=== PATIENT | male | born 1965 | race Hispanic/Latino ===

== ENCOUNTER 2018-10-01 18:06 | Emergency (ER) | payer SELFPAY ==
[2018-10-01 20:45] LABS: Absolute Lymphocytes (CBC) 3.5 K/uL (0.7-4.9); Absolute Monocytes 0.9 K/uL (0.1-1.3); Absolute Neutrophil 7.4 K/uL (1.8-8.0); Basophils % 0.9 % (0-1.3); Eosinophils % 1.3 % (0-4.4); Lymphocytes % 29.3 % (15.3-44.8); MPV 8.2 fL (7.6-11.3); Monocytes % 7.1 % (3.3-12.3); RBC Red Blood Cell Count 4.74 M/uL (4.33-5.43)
[2018-10-01 20:53] LABS: Urine Blood 1+ (NEG); Urine Glucose NEGATIVE (NEG); Urine Protein NEGATIVE (NEG); Urine Specific Gravity >1.030 (1.005-1.030)
[2018-10-01 21:05] LABS: ALT/SGPT 31 U/L (12-78); AST/SGOT 20 U/L (15-37); Albumin 4.3 g/dL (3.4-5.0); Alkaline Phosphatase 84 U/L (45-117); BUN Blood Urea Nitrogen 20 mg/dL (7-18); Bicarbonate 26 mmol/L (21-32); Bilirubin Direct < 0.1 mg/dL (0-0.2); Bilirubin Total 0.3 mg/dL (0.2-1.0); Glucose Level 123 mg/dL (74-106); Lipase 166 U/L (73-393); Potassium 3.4 mmol/L (3.5-5.1); Protein, Total 8.3 g/dL (6.4-8.2); Sodium Level 142 mmol/L (136-145)
--- NOTE | 2018-10-01 22:40 | EDPHYS ---
Physician Documentation [facility] Name: Edmar Menezes Age: 53 yrs Sex: Male : 1965 Arrival Date: 10/01/2018 Time: 18:07 Bed 20 Private MD: None, None ED Physician Mikie Mcfarland HPI: 10/01 20:29 This 53 yrs old Male presents to ER via Ambulatory with complaints of Urinary jmm Problem. 20:29 The patient presents with abdominal pain in the lower abdomen. Onset: The jmm symptoms/episode began/occurred gradually, 2 week(s) ago. The symptoms radiate to left leg. Associated signs and symptoms: Pertinent positives: dysuria. This is a 53 year old male with a history of hlp that presents to the ED with complaints of suprapubic abdominal pain, dysuria, and scrotal pain for the past 2 weeks. Patient denies fever, vomiting, diarrhea. . Historical: - Allergies: 18:36 Ceftriaxone Sodium; hb - PMHx: 18:36 Hyperlipidemia; hb - Immunization history:: Adult Immunizations up to date. - Social history:: Smoking status: Patient/guardian denies using tobacco. - Ebola Screening: : No symptoms or risks identified at this time. ROS: 20:29 Constitutional: Negative for fever, chills, and weight loss, Cardiovascular: Negative jmm for chest pain, palpitations, and edema, Respiratory: Negative for shortness of breath, cough, wheezing, and pleuritic chest pain. 20:29 Abdomen/GI: Positive for abdominal pain. 20:29 : Positive for urinary symptoms. 20:29 All other systems are negative. Exam: 20:29 Constitutional: This is a well developed, well nourished patient who is awake, alert, jmm and in no acute distress. Head/Face: atraumatic. Eyes: EOMI, no conjunctival erythema appreciated ENT: Moist Mucus Membranes Neck: Trachea midline, Supple Chest/axilla: Normal chest wall appearance and motion. Cardiovascular: Regular rate and rhythm. No edema appreciated Respiratory: Normal respirations, no respiratory distress appreciated 20:29 Back: Normal ROM Skin: General appearance color normal MS/ Extremity: Moves all extremities, no obvious deformities appreciated, no edema noted to the lower extremities Neuro: Awake and alert, normal gait Psych: Behavior is normal, Mood is normal, Patient is cooperative and pleasant 20:29 Abdomen/GI: Inspection: obese Bowel sounds: normal, Palpation: nontender, mild abdominal tenderness, in the suprapubic area. 20:29 Back: ROM is normal. Vital Signs: 18:37 BP 147 / 80; Pulse 68; Resp 16; Temp 98.9(TE); Pulse Ox 98% on R/A; Pain 4/10; hb 20:32 BP 139 / 80; Pulse 90; Resp 16; Pulse Ox 97% on R/A; jb4 21:54 BP 141 / 71; Pulse 89; Resp 16; Pulse Ox 99% on R/A; jb4 MDM: 20:29 Patient medically screened. [facility] 22:28 Data reviewed: vital signs, nurses notes. Counseling: I had a detailed discussion with [facility] the patient and/or guardian regarding: the historical points, exam findings, and any diagnostic results supporting the discharge/admit diagnosis, lab results, radiology results, the need for outpatient follow up, to return to the emergency department if symptoms worsen or persist or if there are any questions or concerns that arise at home. ED course: Patient is alert and non toxic in appearance. I do not currently suspect an acute intrabdominal process. Patient is advised to follow up with urology for further evaluation. . 10/01 20:15 Order name: Basic Metabolic Panel; Complete Time: 21:08 [facility] 10/01 20:15 Order name: CBC with Diff; Complete Time: 20:47 [facility] 10/01 20:15 Order name: Creatinine for Radiology; Complete Time: 21:08 [facility] 10/01 20:15 Order name: Hepatic Function; Complete Time: 21:08 [facility] 10/01 20:15 Order name: Lipase; Complete Time: 21:08 [facility] 10/01 20:21 Order name: Urine Dipstick--Ancillary (enter results); Complete Time: 21:08 ar5 10/01 20:15 Order name: IV Saline Lock; Complete Time: 20:37 [facility] 10/01 20:15 Order name: Labs collected and sent; Complete Time: 20:37 [facility] 10/01 20:15 Order name: Urine Dipstick-Ancillary (obtain specimen); Complete Time: 20:37 [facility] 10/01 20:29 Order name: CT Abd/Pelvis - W/Contrast [facility] 10/01 20:29 Order name: US Scrotum Testicles joanne Administered Medications: No medications were administered Disposition: 10/02 07:48 Co-signature as Attending Physician, Mikie Mcfarland MD I agree with the assessment and [facility] plan of care. Disposition: 10/01/18 22:39 Discharged to Home. Impression: Dysuria, Enlarged prostate. - Condition is Stable. - Discharge Instructions: Dysuria. - Prescriptions for Cipro 500 mg Oral Tablet - take 1 tablet by ORAL route every 12 hours for 7 days; 14 tablet. - Medication Reconciliation Form, Thank You Letter, Antibiotic Education, Prescription Opioid Use form. - Follow up: Neo Slade MD; When: 1 - 2 days; Reason: Recheck today's complaints, Continuance of care, Re-evaluation by your physician. Signatures: Dispatcher [employer] EDMS Mikie Mcfarland MD MD cha Mickail, Joel, PA PA jmm Baxter, Heather, [place] RN Gavin Coates RN RN jb4 Corrections: (The following items were deleted from the chart) 10/01 23:01 22:39 10/01/2018 22:39 Discharged to Home. Impression: Dysuria; Enlarged prostate. jb4 Condition is Stable. Forms are Medication Reconciliation Form, Thank You Letter, Antibiotic Education, Prescription Opioid Use. Follow up: Neo Slade; When: 1 - 2 days; Reason: Recheck today's complaints, Continuance of care, Re-evaluation by your physician. joanne
--- NOTE | 2018-10-01 22:40 | ER ---
Nurse's Notes [facility] Name: Edmar Menezes Age: 53 yrs Sex: Male : 1965 Arrival Date: 10/01/2018 Time: 18:07 Bed 20 Private MD: None, None Diagnosis: Dysuria;Enlarged prostate Presentation: 10/01 18:36 Presenting complaint: Lower abdominal pain and difficulty urinating x 2 weeks. hb Transition of care: patient was not received from another setting of care. Onset of symptoms was October 01, 2018. Risk Assessment: Do you want to hurt yourself or someone else? Patient reports no desire to harm self or others. Care prior to arrival: None. 18:36 Acuity: CHANDA 3 hb 18:36 Method Of Arrival: Ambulatory hb Historical: - Allergies: 18:36 Ceftriaxone Sodium; hb - PMHx: 18:36 Hyperlipidemia; hb - Immunization history:: Adult Immunizations up to date. - Social history:: Smoking status: Patient/guardian denies using tobacco. - Ebola Screening: : No symptoms or risks identified at this time. Screenin:00 Abuse screen: Denies threats or abuse. Nutritional screening: No deficits noted. jb4 Tuberculosis screening: No symptoms or risk factors identified. Fall Risk None identified. Assessment: 20:00 General: Appears in no apparent distress. comfortable, Behavior is calm, cooperative, jb4 appropriate for age. Pain: Complains of pain in suprapubic area Pain radiates to groin Pain currently is 4 out of 10 on a pain scale. Neuro: Level of Consciousness is awake, alert, obeys commands, Oriented to person, place, time, situation. Cardiovascular: Patient's skin is warm and dry. Respiratory: Airway is patent Respiratory effort is even, unlabored, Respiratory pattern is regular, symmetrical. GI: Reports lower abdominal pain. : Reports pain in suprapubic area. EENT: No signs and/or symptoms were reported regarding the EENT system. Derm: Skin is intact, Skin is pink, warm \T\ dry. Musculoskeletal: Circulation, motion, and sensation intact. 21:00 Reassessment: Patient appears in no apparent distress at this time. Patient and/or jb4 family updated on plan of care and expected duration. Pain level reassessed. Patient is alert, oriented x 3, equal unlabored respirations, skin warm/dry/pink. Vital Signs: 18:37 BP 147 / 80; Pulse 68; Resp 16; Temp 98.9(TE); Pulse Ox 98% on R/A; Pain 4/10; hb 20:32 BP 139 / 80; Pulse 90; Resp 16; Pulse Ox 97% on R/A; jb4 21:54 BP 141 / 71; Pulse 89; Resp 16; Pulse Ox 99% on R/A; jb4 ED Course: 18:07 Patient arrived in ED. sb2 18:07 None, None is Private Physician. sb2 18:35 Arm band placed on. hb 18:37 Triage completed. hb 19:50 Gavin Walker, RN is Primary Nurse. jb4 20:00 Patient has correct armband on for positive identification. Bed in low position. Call jb4 light in reach. Side rails up X 1. Pulse ox on. NIBP on. 20:15 Desean Beaulieu PA is PHCP. [facility] 20:15 Mikie Mcfarland MD is Attending Physician. [facility] 20:30 Initial lab(s) drawn, by mi, sent to lab. Inserted saline lock: 20 gauge in right jb4 antecubital area, using aseptic technique. Blood collected. 20:59 Radiology exam delayed due to lab results not completed at this time. (BUN/Creatinine). nj 21:[address] nj 21:58 CT Abd/Pelvis - W/Contrast In Process Unspecified. EDMS 22:27 US Scrotum Testicles In Process Unspecified. EDMS 22:39 Neo Slade MD is Referral Physician. [facility] 22:59 No provider procedures requiring assistance completed. IV discontinued, intact, cc3 bleeding controlled, No redness/swelling at site. Pressure dressing applied. Administered Medications: No medications were administered Outcome: 22:39 Discharge ordered by . [facility] 22:59 Discharged to home ambulatory, with family. cc3 22:59 Condition: stable 22:59 Discharge instructions given to patient, Instructed on discharge instructions, follow up and referral plans. medication usage, Demonstrated understanding of instructions, follow-up care, medications, Prescriptions given X 1. 23:01 Patient left the ED. [facility] Signatures: Dispatcher [employer] EDMS Desean Beaulieu PA PA Meenu Caballero RN RN Gavin Coates, RN RN jb4 Denny Tracy Sheri sb2 Kasandra Vallejo cc3
[2018-10-02 02:01] VITALS: TEMP 98.9
[2018-10-02 02:04] VITALS: BP 141/71; O2SAT 99
--- NOTE | 2018-10-02 09:49 | RAD REPORT ---
EXAM DESCRIPTION: US - Scrotum Testicles - 10/01/2018 10:27 pm CLINICAL HISTORY: Scrotal pain Preliminary findings provided at the time of the study. COMPARISON: None. FINDINGS: Testicular tissue is homogeneous with no mass or focal intratesticular abnormality. Dopple r evaluation shows normal blood flow within the testicular tissue. No epididymis mass or hyperemia. T race hydrocele seen bilaterally. No varicocele other extratesticular mass. IMPRESSION: Scrotal ultrasound showing no significant or suspicious finding.
--- NOTE | 2018-10-02 11:52 | RAD REPORT ---
EXAM DESCRIPTION: CT - Abdomen Pelvis W Contrast - 10/01/2018 10:25 pm CLINICAL HISTORY: 53 years Male Lower abdominal pain, IV ONLY COMPARISON: None. TECHNIQUE: Images were obtained in axial, sagittal and coronal planes. Intravenous contrast was admi nistered. This exam was performed according to our departmental dose-optimization program, which includes autom ated exposure control, adjustment of the mA and/or kV according to patient size and/or less of iterat mustapha reconstruction technique. FINDINGS: No abnormality involving the liver, is clean, gallbladder, and adrenal glands bilaterally. No obstructing renal calcifications bilaterally. No hydronephrosis bilaterally. Unremarkable bladder. Mildly enlarged prostate gland with associated calcification. Appendix is incompletely visualized however, no secondary signs for appendicitis. No bowel obstructio n, perforation, or inflammation. Calcification abdominal aorta without dilatation seen. Unremarkable portal vein. Dependent atelectatic changes lower lungs bilaterally. No acute osseous abnormality. IMPRESSION: Mildly enlarged prostate gland. No acute intra-abdominal abnormality. Electronically signed by Estephania Pelaez MD 10/01/2018 10:07 PM INSTRUMENTATION AND CONTROLS DESIGNER Due to temporary technical issues with the PACS/Fluency reporting system, reports are being signed by the in house radiologist as a courtesy to ensure prompt reporting. The interpreting radiologist is f ully responsible for the content of the report.
== END 2018-10-01 23:01 | disposition home or self-care (01) ==
LOC: ER 18:06
DX: N40.0 Benign prostatic hyperplasia without lower urinary tract symptoms (principal); E78.5 Hyperlipidemia, unspecified; Z88.8 Allergy status to other drugs, medicaments and biological substances
CPT/HCPCS: 36415; 74177; 76870; 80048; 80076; 81003; 83690; 85025; Q9967

== ENCOUNTER 2019-11-11 09:40 | Emergency (ER) | payer SELFPAY ==
[2019-11-11] MEDS ORDERED: METOCLOPRAMIDE 10 MG/2mL INJ ONE (10:12)
[2019-11-11] MEDS ORDERED: NA CHLORIDE 0.9% 0 ML ONE (10:12)
[2019-11-11] MEDS ORDERED: MEPERIDINE HCL 25 MG/0.5 ML ONE (10:12)
[2019-11-11] MEDS ORDERED: MAGNE/ALUM HYDROXD 30 ML UCUP ONE (10:13)
[2019-11-11] MEDS ORDERED: LIDOCAINE VISCOUS 2% SOLN 15 ML UDC ONE (10:13)
--- NOTE | 2019-11-11 10:57 | EDPHYS ---
Physician Documentation [facility] Name: Edmar Menezes Age: 54 yrs Sex: Male : 1965 Arrival Date: 11/11/2019 Time: 09:42 Bed 14 Private MD: ED Physician Jatinder Menezes HPI: 11/10 10:54 This 54 yrs old Male presents to ER via Ambulatory with complaints of Sore snw Throat. 10:54 The patient presents with sore throat. The patient describes throat pain as scratchy. snw Onset: The symptoms/episode began/occurred gradually. Severity of symptoms: At their worst the symptoms were very mild. Associated signs and symptoms: The patient has no apparent associated signs or symptoms. The patient has not experienced similar symptoms in the past. The patient has been recently seen by a physician: pt had sore throat and was treated with abx for gastritis, recent endoscopy for dx gastritis. Not on PPI. Historical: - Allergies: 09:56 Ceftriaxone Sodium; bp - Home Meds: 09:56 Flomax Oral [Active]; bp - PMHx: 09:56 Hyperlipidemia; BPH; bp - Immunization history:: Adult Immunizations up to date. - Social history:: Smoking status: Patient denies any tobacco usage or history of. ROS: 10:51 Constitutional: Negative for fever, chills, and weight loss, Eyes: Negative for injury, snw pain, redness, and discharge, ENT: Negative for injury and discharge, pain on swallowing Neck: Negative for injury, pain, and swelling, Cardiovascular: Negative for chest pain, palpitations, and edema, Respiratory: Negative for shortness of breath, cough, wheezing, and pleuritic chest pain, Abdomen/GI: Negative for abdominal pain, nausea, vomiting, diarrhea, and constipation, Back: Negative for injury and pain, : Negative for injury, bleeding, discharge, and swelling, MS/Extremity: Negative for injury and deformity, Skin: Negative for injury, rash, and discoloration, Neuro: Negative for headache, weakness, numbness, tingling, and seizure. Exam: 10:50 Constitutional: This is a well developed, well nourished patient who is awake, alert, snw and in no acute distress. Head/Face: Normocephalic, atraumatic. Eyes: Pupils equal round and reactive to light, extra-ocular motions intact. Lids and lashes normal. Conjunctiva and sclera are non-icteric and not injected. Cornea within normal limits. Periorbital areas with no swelling, redness, or edema. ENT: Nares patent. No nasal discharge, no septal abnormalities noted. Tympanic membranes are normal and external auditory canals are clear. Oropharynx with no redness, swelling, or masses, exudates, or evidence of obstruction, uvula midline. Mucous membranes moist. Neck: Trachea midline, no thyromegaly or masses palpated, and no cervical lymphadenopathy. Supple, full range of motion without nuchal rigidity, or vertebral point tenderness. No Meningismus. Chest/axilla: Normal chest wall appearance and motion. Nontender with no deformity. No lesions are appreciated. Cardiovascular: Regular rate and rhythm with a normal S1 and S2. No gallops, murmurs, or rubs. Normal PMI, no JVD. No pulse deficits. Respiratory: Lungs have equal breath sounds bilaterally, clear to auscultation and percussion. No rales, rhonchi or wheezes noted. No increased work of breathing, no retractions or nasal flaring. Abdomen/GI: Soft, non-tender, with normal bowel sounds. No distension or tympany. No guarding or rebound. No evidence of tenderness throughout. Back: No spinal tenderness. No costovertebral tenderness. Full range of motion. Skin: Warm, dry with normal turgor. Normal color with no rashes, no lesions, and no evidence of cellulitis. MS/ Extremity: Pulses equal, no cyanosis. Neurovascular intact. Full, normal range of motion. Neuro: Awake and alert, GCS 15, oriented to person, place, time, and situation. Cranial nerves II-XII grossly intact. Motor strength 5/5 in all extremities. Sensory grossly intact. Cerebellar exam normal. Normal gait. Vital Signs: 09:52 BP 121 / 82; Pulse 62; Resp 16; Temp 97.3; Pulse Ox 100% ; Weight 113.4 kg; bp 11:56 BP 132 / 75; Pulse 75; Resp 17; Temp 97.5; Pulse Ox 100% ; bp MDM: 09:51 Patient medically screened. snw 10:58 Data reviewed: vital signs, nurses notes. Data interpreted: Pulse oximetry: on room air snw is 100 %. Interpretation: normal. Counseling: I had a detailed discussion with the patient and/or guardian regarding: the historical points, exam findings, and any diagnostic results supporting the discharge/admit diagnosis, the need for outpatient follow up, to return to the emergency department if symptoms worsen or persist or if there are any questions or concerns that arise at home. Special discussion: Based on the history and exam findings, there is no indication for further emergent testing or inpatient evaluation. I discussed with the patient/guardian the need to see the apprentice jockey for further evaluation of the symptoms. I discussed with the patient/guardian the need to see the primary care provider for further evaluation of the symptoms. Administered Medications: 10:28 Drug: GI Cocktail without - (Maalox Suspension 30 ml, Lidocaine Liquid 2 % 15 bp ml) Route: PO; 11:57 Follow up: Response: Pain is decreased bp Disposition: 12:14 Co-signature as Attending Physician, Jatinder Menezes MD. rn Disposition: 11/11/19 10:56 Discharged to Home. Impression: Gastro-esophageal reflux disease. - Condition is Stable. - Discharge Instructions: Gastroesophageal Reflux Disease, Adult. - Prescriptions for Protonix 40 mg Oral Tablet - take 1 tablet by ORAL route once daily; 30 tablet. - Medication Reconciliation Form, Thank You Letter, Antibiotic Education, Prescription Opioid Use form. - Follow up: Emergency Department; When: As needed; Reason: Worsening of condition. Follow up: Private Physician; When: 1 week; Reason: Recheck today's complaints, Continuance of care, Re-evaluation by your physician. Signatures: Juana Lopez, CHILDREN'S ATTENDANT-C CHILDREN'S ATTENDANT-Csnw Jatinder Menezes MD MD rn Peltier, Brian, RN RN bp Corrections: (The following items were deleted from the chart) 11:58 10:56 11/11/2019 10:56 Discharged to Home. Impression: Gastro-esophageal reflux bp disease. Condition is Stable. Forms are Medication Reconciliation Form, Thank You Letter, Antibiotic Education, Prescription Opioid Use. Follow up: Emergency Department; When: As needed; Reason: Worsening of condition. Follow up: Private Physician; When: 1 week; Reason: Recheck today's complaints, Continuance of care, Re-evaluation by your physician. snw
--- NOTE | 2019-11-11 10:57 | ER ---
Nurse's Notes [facility] Name: Edmar Menezes Age: 54 yrs Sex: Male : 1965 Arrival Date: 11/11/2019 Time: 09:42 Bed 14 Private MD: Diagnosis: Gastro-esophageal reflux disease Presentation: 11/10 09:52 Chief complaint: Patient states: 4 DAYS THROAT PAIN. Coronavirus screen: Patient denies bp fever greater than 100.4F, cough, shortness of breath, or difficulty breathing. Proceed with normal triage process. Ebola Screen: No symptoms or risks identified at this time. Initial Sepsis Screen: Does the patient meet any 2 criteria? No. Patient's initial sepsis screen is negative. Does the patient have a suspected source of infection? No. Patient's initial sepsis screen is negative. Risk Assessment: Do you want to hurt yourself or someone else? Patient reports no desire to harm self or others. 09:52 Method Of Arrival: Ambulatory bp 09:52 Acuity: CHANDA 4 bp Triage Assessment: 09:56 General: Appears in no apparent distress. comfortable, obese, Behavior is cooperative, bp appropriate for age, anxious. Pain: Complains of pain in neck. EENT: No deficits noted. Neuro: No deficits noted. Cardiovascular: No deficits noted. Respiratory: No deficits noted. GI: No signs and/or symptoms were reported involving the gastrointestinal system. : No signs and/or symptoms were reported regarding the genitourinary system. Derm: No deficits noted. Musculoskeletal: No deficits noted. Historical: - Allergies: 09:56 Ceftriaxone Sodium; bp - Home Meds: 09:56 Flomax Oral [Active]; bp - PMHx: 09:56 Hyperlipidemia; BPH; bp - Immunization history:: Adult Immunizations up to date. - Social history:: Smoking status: Patient denies any tobacco usage or history of. Screenin:58 Abuse screen: Denies threats or abuse. Denies injuries from another. Nutritional bp screening: No deficits noted. Tuberculosis screening: No symptoms or risk factors identified. Fall Risk None identified. Assessment: 09:58 General: SEE TRIAGE NOTE. Respiratory: Airway is patent Respiratory effort is even, bp unlabored, Breath sounds are clear bilaterally. EENT: Throat is reddened. 11:56 Reassessment: PT D/C HOME AMBULATORY, DX WITH GERD. bp Vital Signs: 09:52 BP 121 / 82; Pulse 62; Resp 16; Temp 97.3; Pulse Ox 100% ; Weight 113.4 kg; bp 11:56 BP 132 / 75; Pulse 75; Resp 17; Temp 97.5; Pulse Ox 100% ; bp ED Course: 09:42 Patient arrived in ED. ag5 09:48 Jelani aSntiago, RN is Primary Nurse. bp 09:50 Juana Lopez FNP-C is PHCP. snw 09:50 Jatinder Menezes MD is Attending Physician. snw 09:53 Triage completed. bp 09:56 Arm band placed on. bp 09:58 Patient has correct armband on for positive identification. Bed in low position. Call bp light in reach. Side rails up X2. Adult w/ patient. 11:56 No provider procedures requiring assistance completed. Patient did not have IV access bp during this emergency room visit. Administered Medications: 10:28 Drug: GI Cocktail without - (Maalox Suspension 30 ml, Lidocaine Liquid 2 % 15 bp ml) Route: PO; 11:57 Follow up: Response: Pain is decreased bp Outcome: 10:56 Discharge ordered by . snw 11:56 Discharged to home ambulatory. bp 11:56 Condition: stable 11:56 Discharge instructions given to patient, Instructed on discharge instructions, follow up and referral plans. medication usage, Demonstrated understanding of instructions, follow-up care, medications, Prescriptions given X 1. 11:58 Patient left the ED. bp Signatures: Juana Lopez FNP-C ARCHIVES SPECIALIST-Csnw Jelani Santiago, RN RN bp Hugo Hank ag5
[2019-11-11 12:03] VITALS: O2SAT 100
[2019-11-11 12:05] VITALS: BP 132/75; TEMP 97.5
== END 2019-11-11 11:58 | disposition home or self-care (01) ==
LOC: ER 09:40
DX: K21.9 Gastro-esophageal reflux disease without esophagitis (principal); E78.5 Hyperlipidemia, unspecified; Z88.8 Allergy status to other drugs, medicaments and biological substances
CPT/HCPCS: 99283; J2175; J2765; J7030

== ENCOUNTER 2024-09-08 15:25 | Emergency (ER) | payer SELFPAY ==
--- OUTSIDE RECORDS SUMMARY | 2024-09-08 15:27 | XMS REPORT | Continuity of Care Document ---
Author Name Unknown Address [address] [facility] [address] [place] [address] [facility] thconnect Address [address] [facility] [place] [address] Care Team Providers Care Acoustic Engineer Name Role Phone SYLVIA_MELITON Attending Clinician Unavailable AMBREEN_CHRISTYA Admitting Clinician Unavailable Problems Condition Name Condition Details Condition Category Status Onset Date Resolution Date Last Treatment Date Treating Clinician Comments Source Erectile dysfunctio n Erectile dysfunctio n Problem Active [facility] Social History Social Habit Start Date Stop Date Quantity Comments Source History of Tobacco Use [facility] Sex Assigned At [facility] Smoking Status Start Date Stop Date Source Never Smoker [facility] Medications Ordered Medication Name Filled Medication Name Start Date Stop Date Current Medication? Ordering Clinician Indication Dosage Frequency Signature (SIG) Comments Components Source Tamsulosin HCl 0.4 MG Tamsulosin HCl 0.4 MG 09-15 00:00: 00 03-14 00:00 :00 No 1{capsu le} QD Tamsulosin HCl 0.4 MG Vital Signs Vital Name Observation Time Observation Value Comments S ource height 2020-10-12 11:00:00 66 [in_i] Commo n [facility] weight 2020-10-12 11:00:00 223.2 [lb_av] Co mmon [facility] temperature 2020-10-12 11:00:00 97.8 [degF] Com mon [facility] bmi 2020-10-12 11:00:00 36.02 kg/m2 Comm on [facility] oximetry 2020-10-12 11:00:00 94 % Commo n [facility] blood pressure systolic 2020-10-12 11:00:00 157 mm[Hg] Common [facility] blood pressure diastolic 2020-10-12 11:00:00 78 mm[Hg] [facility] height 2020-09-15 10:45:00 66 [in_i] Commo n [facility] weight 2020-09-15 10:45:00 223.2 [lb_av] Co mmon [facility] temperature 2020-09-15 10:45:00 97.6 [degF] Com mon [facility] bmi 2020-09-15 10:45:00 36.02 kg/m2 Comm on [facility] oximetry 2020-09-15 10:45:00 96 % Commo n [facility] blood pressure systolic 2020-09-15 10:45:00 157 mm[Hg] [facility] blood pressure diastolic 2020-09-15 10:45:00 84 mm[Hg] [facility] Encounters Start Date/Time End Date/Time Encounter Type Admission Type Attending [facility] Facility Care Department Encounter ID Source 2022-06-06 16:20:01 Outpatient [facility] [id number] [facility] 2022-06-04 13:40:02 Outpatient [facility] [id number] [facility] 2021-09-13 12:26:21 Outpatient [facility] ST[facility] [id number] [facility] 2022-03-16 00:00:00 2022-03-16 00:00:00 Outpatient SYLVIA_TAPAN GAMEZ NDMISSY [id number] 2020-10-12 00:00:00 2020-10-12 00:00:00 OFFICE VISIT NEW PT LEVEL 3 [facility] ST[facility] [id number] [facility] 2020-09-15 00:00:00 2020-09-15 00:00:00 OFFICE VISIT NEW PT LEVEL 3 [facility] STL[facility]C [id number] [facility]
[2024-09-08 16:23] LABS: Absolute Basophils 0.1 K/uL (0-0.5); Absolute Lymphocytes (CBC) 1.7 K/uL (0.7-4.9); Absolute Monocytes 0.4 K/uL (0.1-1.3); Absolute Neutrophil 9.1 K/uL (1.8-8.0); Basophils % 0.9 % (0-1.3); Eosinophils % 0.2 % (0-4.4); Hematocrit 44.3 % (39.6-49.0); Hemoglobin 14.8 g/dL (13.6-17.9); MCH 31.7 pg (27.0-35.0); MCHC 33.4 g/dL (32.0-36.0); MPV 7.8 fL (7.6-11.3); Monocytes % 3.8 % (3.3-12.3); Neutrophils % 80.1 % (41.7-73.7); Nucleated Red Blood Cells % 0.1 % (0-0); Platelets 260 thou/uL (152-406); RBC Red Blood Cell Count 4.66 M/uL (4.33-5.43); Red Cell Distribution Width 13.1 % (12.1-15.2)
[2024-09-08 16:42] LABS: Specific Gravity < 1.005 (1.005-1.030); Sqamous Epithelial None Seen /HPF (None Seen); Urine Bacteria None Seen /HPF (<20); Urine Bilirubin NEGATIVE (Negative); Urine Blood Negative (Negative); Urine Clarity Clear (Clear); Urine Color Colorless (Yellow); Urine Culture Reflex Order NOT NEEDED; Urine Glucose NEGATIVE (Negative); Urine Ketones NEGATIVE (Negative); Urine Microscopic Reflex YN ORDER UMIC; Urine Nitrite NEGATIVE (Negative); Urine Protein NEGATIVE (Negative); Urine RBC <5 /HPF (None Seen); Urine Urobilinogen Normal (Normal); Urine WBC None Seen /HPF (<5); Urine pH 6.5 (5.0-7.0)
[2024-09-08 16:49] LABS: Albumin 3.9 g/dL (3.4-5.0); Albumin/Globulin Ratio 0.9 (1.1-1.8); Anion Gap 10.9 mEq/L (5.0-15.0); Bilirubin Total 0.4 mg/dL (0.2-1.0); Globulin 4.2 g/dL (2.3-3.5); Potassium 3.9 mEq/L (3.5-5.1); Protein, Total 8.1 g/dL (6.4-8.2)
--- NOTE | 2024-09-08 17:42 | RAD REPORT ---
EXAMINATION: CT ABDOMEN AND PELVIS WITH CONTRAST CLINICAL INDICATION: Male, 59 years old.ABD PAIN TECHNIQUE: CT abdomen and pelvis was performed, after the administration of IV contrast, as per depar tment protocol. Axial, sagittal and coronal reconstructions were obtained. One or more of the following dose reduction techniques were used: Automated exposure control, adjustment of the mA and/o r kV according to patient size, and/or iterative reconstruction. Unless otherwise specified, incidental findings do not require dedicated imaging follow-up. [id number]. COMPARISON: 10/01/2018 FINDINGS: LOWER CHEST: No acute process identified.No significant pericardial effusion. UPPER GI: No significant abnormality. LIVER: Hepatic steatosis, but otherwise unremarkable. GALLBLADDER/BILE DUCTS: No biliary ductal dilatation.? PANCREAS: No mass, ductal dilation, or dena-pancreatic fluid. SPLEEN: Unremarkable. ADRENALS: No adrenal masses. KIDNEYS AND URETERS: No hydronephrosis.No suspicious renal mass. ABDOMINAL AORTA AND OTHER VESSELS: Normal caliber aorta and IVC. PERITONEUM: No abnormal free fluid. No free air. LYMPH NODES: No pathologic lymphadenopathy. ABDOMINAL WALL: Small fat-containing inguinal hernias. SMALL BOWEL/COLON: Small bowel has normal course and caliber. No colonic wall thickening or pericolon ic inflammatory changes.Normal appendix. Mild diverticulosis without diverticulitis. URINARY BLADDER: Underdistended but grossly unremarkable. REPRODUCTIVE ORGANS: No pathologic process. MUSCULOSKELETAL: Multilevel degenerative changes in the spine. No acute fracture. ADDITIONAL FINDINGS: None. IMPRESSION: No acute or significant abnormalities seen in the abdomen or pelvis.
--- NOTE | 2024-09-08 17:55 | EDPHYS ---
Physician Documentation [facility] Name: Edmar Menezes Age: 59 yrs Sex: Male : 1965 Arrival Date: 09/08/2024 Time: 15:25 Bed 6 Private MD: ED Physician Mikie Mcfarland HPI: 09/08 16:21 This 59 yrs old Male presents to ER via Ambulatory with complaints of dr5 Abdominal Pain, Urinary Problem. 16:21 The patient presents with abdominal pain Suprapubic. dr5 16:22 Athletic Field Custodian (Kristie - [id number]) used during assessment. Patient is a 59-year-old dr5 male with history of BPH, hyperlipidemia coming in with 3 weeks of intermittent suprapubic abdominal pain and slight discomfort with urination. Patient reports he was seen in [place] at his family doctor 6 months ago with normal results. Patient denies taking any daily medications. Patient denies chest pain, shortness of breath, upper abdominal pain, nausea, vomiting, diarrhea, penile or testicular pain. Historical: - Allergies: 16:05 No Known Allergies; ss - Home Meds: 16:05 None [Active]; ss - PMHx: 16:05 BPH; Hyperlipidemia; ss - PSHx: 16:05 None; ss - Infectious Disease History:: Denies. - Social history:: Smoking status: Patient denies any tobacco usage or history of. ROS: 16:22 Constitutional: as per hpi dr5 Exam: 16:22 Constitutional: This is a well developed, well nourished patient who is awake, alert, dr5 and in no acute distress. Head/Face: Normocephalic, atraumatic. Eyes: Pupils equal round and reactive to light, extra-ocular motions intact. Lids and lashes normal. Conjunctiva and sclera are non-icteric and not injected. Cornea within normal limits. Periorbital areas with no swelling, redness, or edema. ENT: Nares patent. No nasal discharge, no septal abnormalities noted. Tympanic membranes are normal and external auditory canals are clear. Oropharynx with no redness, swelling, or masses, exudates, or evidence of obstruction, uvula midline. Mucous membranes moist. Chest/axilla: Normal chest wall appearance and motion. Nontender with no deformity. No lesions are appreciated. Cardiovascular: Regular rate and rhythm with a normal S1 and S2. Normal PMI, no JVD. No pulse deficits. Respiratory: Lungs have equal breath sounds bilaterally, clear to auscultation. No rales, rhonchi or wheezes noted. No increased work of breathing, no retractions or nasal flaring. Back: No spinal tenderness. No costovertebral tenderness. Full range of motion. Skin: Warm, dry with normal turgor. Normal color with no rashes, no lesions, and no evidence of cellulitis. MS/ Extremity: Pulses equal, no cyanosis. Neurovascular intact. Full, normal range of motion. Neuro: Awake and alert, GCS 15, oriented to person, place, time, and situation. Cranial nerves II-XII grossly intact. Motor strength 5/5 in all extremities. Sensory grossly intact. Cerebellar exam normal. Normal gait. 16:22 Abdomen/GI: Inspection: abdomen appears normal, obese Bowel sounds: normal, Palpation: abdomen is soft and non-tender, in all quadrants, Vital Signs: 16:02 BP 186 / 104; Pulse 98; Resp 16; Temp 98(TE); Pulse Ox 98% on R/A; Pain 0/10; ss 18:11 BP 137 / 86; Pulse 85; Resp 16; Pulse Ox 100% on R/A; Pain 3/10; ss 16:02 Pain Scale: Adult ss 18:11 Pain Scale: Adult ss MDM: 15:30 Medical Screening Exam initiated dr5 17:55 Differential diagnosis: appendicitis, bowel obstruction, gastritis, gastroesophageal dr5 reflux disease, pancreatitis, urinary tract infection. Data reviewed: vital signs, nurses notes, lab test result(s), radiologic studies, CT scan. I considered the following discharge prescriptions or medication management in the emergency department Medications were administered in the Emergency Department. See MAR. Historians other than the Patient: Spouse/Significant Other: . Care significantly affected by the following chronic conditions: Hyperlipidemia. Care significantly affected by the following Social Determinants of Health: Poor access to healthcare and/or lack of insurance, Poor access to transportation, Problems related to employment. Counseling: I had a detailed discussion with the patient and/or guardian regarding the historical points, exam findings, and any diagnostic results supporting the discharge/admit diagnosis, the presence of at least one elevated blood pressure reading (>120/80) during this emergency department visit, lab results, radiology results, the need for outpatient follow up, for definitive care, a family practitioner, a urologist, to return to the emergency department if symptoms worsen or persist or if there are any questions or concerns that arise at home. ED course: Use motor vehicle parts interpreter to discuss lab work and CT results (Tavo). No acute abnormality noted on CT scan. Urinalysis was normal. I printed out results and gave to to take to primary care doctor this week. Patient highly encouraged to follow-up as soon as possible with likely referral to urologist. Recommended patient alternate Tylenol and Motrin as needed for pain and fever. Increase hydration. All questions answered.. 09/08 15:59 Order name: CBC with Diff; Complete Time: 16:40 [facility] 09/08 15:59 Order name: CMP; Complete Time: 16:51 [facility] 09/08 15:59 Order name: Lipase; Complete Time: 16:51 [facility] 09/08 15:59 Order name: Urinalysis w/ reflexes; Complete Time: 16:51 [facility] 09/08 16:53 Order name: CT Abd/Pelvis - IV Contrast Only; Complete Time: 17:46 [facility] 09/08 15:59 Order name: IV Saline Lock; Complete Time: 17:00 [facility] 09/08 15:59 Order name: Labs collected and sent; Complete Time: 17:00 [facility] Administered Medications: 17:07 Not Given (Patient Refused; SANDIP Chinchilla notified ): TORadol - [id number] mg IVP once ss 18:08 Drug: Ketorolac IVP 15 mg IVP once Route: IVP; Site: right antecubital; ss 18:08 Follow up: Response: No adverse reaction; Medication Administered at Departure ss Disposition: 09/09 07:30 Co-signature as Attending Physician, Mikie Mcfarland MD I agree with the assessment and rey plan of care. Disposition Summary: 09/08/24 17:54 Discharge Ordered Notes: Location: Home dr5 Condition: Stable dr5 Diagnosis - Abdominal pain, Generalized dr5 Followup: dr5 - With: Emergency Department - When: As needed - Reason: Worsening of condition Followup: dr5 - With: Private Physician - When: 1 - 2 days - Reason: Recheck today's complaints, Continuance of care, Re-evaluation by your physician Discharge Instructions: - Discharge Summary Sheet dr5 - Abdominal Pain, Adult dr5 Forms: - Medication Reconciliation Form dr5 - Patient Portal Instructions dr5 - Leadership Thank You Letter dr5 Signatures: Dispatcher [employer] Mikie Grimes MD MD cha Blanchard, Shelby, RN RN ss Amor Gonzales FNP-C FNP-Cdr5 Corrections: (The following items were deleted from the chart) 09/08 16:07 16:05 Allergies: Ceftriaxone Sodium; [facility]
--- NOTE | 2024-09-08 17:55 | ER ---
Nurse's Notes [facility] Name: Edmar Menezes Age: 59 yrs Sex: Male : 1965 Arrival Date: 09/08/2024 Time: 15:25 Bed 6 Private MD: Diagnosis: Abdominal pain, Generalized Presentation: 09/08 16:02 Chief complaint: Patient states: lower abd discomfort that is worse with urination. ss Began 3 weeks ago. Coronavirus screen: Client denies travel out of the [place] in the last 14 days. Ebola Screen: Patient denies exposure to infectious person. Patient denies travel to an Ebola-affected area in the 21 days before illness onset. Initial Sepsis Screen: Does the patient meet any 2 criteria? No. Patient's initial sepsis screen is negative. Does the patient have a suspected source of infection? No. Patient's initial sepsis screen is negative. Risk Assessment: Do you want to hurt yourself or someone else? Patient reports no desire to harm self or others. Onset of symptoms was August 18, 2024. 16:02 Method Of Arrival: Ambulatory ss 16:02 Acuity: CHANDA 3 ss Historical: - Allergies: 16:05 No Known Allergies; ss - Home Meds: 16:05 None [Active]; ss - PMHx: 16:05 BPH; Hyperlipidemia; ss - PSHx: 16:05 None; ss - Infectious Disease History:: Denies. - Social history:: Smoking status: Patient denies any tobacco usage or history of. Screenin:09 Abuse screen: Denies threats or abuse. Denies injuries from another. Nutritional ss screening: No deficits noted. Tuberculosis screening: Never had TB. Assessment: 18:09 Reassessment: Patient appears in no apparent distress at this time. Patient and/or ss family updated on plan of care and expected duration. Pain level reassessed. Patient is alert, oriented x 3, equal unlabored respirations, skin warm/dry/pink. Vital Signs: 16:02 BP 186 / 104; Pulse 98; Resp 16; Temp 98(TE); Pulse Ox 98% on R/A; Pain 0/10; ss 18:11 BP 137 / 86; Pulse 85; Resp 16; Pulse Ox 100% on R/A; Pain 3/10; ss 16:02 Pain Scale: Adult ss 18:11 Pain Scale: Adult ss ED Course: 15:27 Patient arrived in ED. ra3 15:28 [facility] Gonzales [facility]-C [facility]. [facility]5 15:28 Mikie Mcfarland MD is Attending Physician. dr5 16:05 Triage completed. ss 16:05 Arm band placed on right wrist. ss 16:15 Inserted saline lock: 22 gauge in right antecubital area, using aseptic technique. ss Blood collected. Flushed with 10 mL NS. 17:32 CT Abd/Pelvis - IV Contrast Only In Process Unspecified. EDMS 18:09 Patient has correct armband on for positive identification. ss 18:09 No provider procedures requiring assistance completed. IV discontinued, intact, ss bleeding controlled, No redness/swelling at site. Pressure dressing applied. Administered Medications: 17:07 Not Given (Patient Refused; SANDIP Chinchilla notified ): TORadol - [id number] mg IVP once ss 18:08 Drug: Ketorolac IVP 15 mg IVP once Route: IVP; Site: right antecubital; ss 18:08 Follow up: Response: No adverse reaction; Medication Administered at Departure ss Medication: 18:09 VIS not applicable for this client. Outcome: 17:54 Discharge ordered by . dr5 18:11 Discharged to home ambulatory, with family, ss 18:11 Condition: good 18:11 Discharge instructions given to patient, family, Instructed on discharge instructions, follow up and referral plans. Demonstrated understanding of instructions, follow-up care, 18:11 Patient left the ED. Signatures: Dispatcher [employer] EDWI Mariam Malagon RN RN Reema Carolina ra3 Amor Gonzales FNP-C FNP-Cdr5 Corrections: (The following items were deleted from the chart) 16:07 16:05 Allergies: Ceftriaxone Sodium; ss ss
[2024-09-08] MEDS ORDERED: KETOROLAC 30 MG/ML INJ ONE (17:58)
[2024-09-08 19:10] VITALS: TEMP 98
[2024-09-08 19:11] VITALS: BP 137/86; O2SAT 100
== END 2024-09-08 18:11 | disposition home or self-care (01) ==
LOC: ER 15:25
DX: R10.84 Generalized abdominal pain (principal); E78.5 Hyperlipidemia, unspecified; N40.0 Benign prostatic hyperplasia without lower urinary tract symptoms
CPT/HCPCS: 36415; 74177; 80053; 81001; 83690; 85025; 96374; 99284; Q9967